=== PATIENT | male | born 1960 | race Caucasian/White ===

== ENCOUNTER 2017-06-08 12:59 | Outpatient (CLI) | payer OTHER, MEDICARE ==
[2017-06-08 14:00] LABS: Hemoglobin 15.2 g/dL (14.0-18.0); Mean Corpuscular HGB CONC 34.1 g/dL (32.0-36.0); Mean Corpuscular Hemoglobin 34.1 pg (27.0-31.0); Mean Platelet Volume 6.6 fL (7.4-10.4); Platelet Count 289 thou/uL (130-400); Red Blood Cell (RBC) Count 4.45 mill/uL (4.70-6.10); White Blood Cell (WBC) Count 7.4 thou/uL (4.8-10.8)
[2017-06-08 14:22] LABS: Anion Gap 13 mmol/L (10-20); BUN (Urea Nitrogen) 11 mg/dL (8.4-25.7); Calc. Creatinine Clearance 0 mL/min (70-130); Calcium 10.1 mg/dL (7.8-10.44); Carbon Dioxide 28 mmol/L (22-29); Chloride 99 mmol/L (98-107); Estimated GFR-MDRD 81; Glucose 80 mg/dL (70-105); Potassium 4.7 mmol/L (3.5-5.1); Sodium 135 mmol/L (136-145)
== END 2017-06-08 13:00 | disposition home or self-care (01) ==
LOC: LABBT 12:59
PROVIDERS: ATTEND Orthopaedic Surgery
DX: Z01.818 Encounter for other preprocedural examination (principal); M72.4 Pseudosarcomatous fibromatosis
CPT/HCPCS: 80048; 85027; 93005; 93010

== ENCOUNTER 2017-06-13 07:25 | Day surgery (SDC) | payer OTHER, MEDICARE ==
[2017-06-08 13:17] VITALS: BMI 19.8
--- NOTE | 2017-06-12 09:19 | HP ---
HISTORY OF PRESENT ILLNESS: The patient is a 56-year-old white male who has developed a recurrent pa inful mass on the plantar aspect of his left foot. He had previous excision in 04/2015, which was a fibroma of the plantar fascia. He initially improved, but over the past several months he has notice d increasing pain and recurrence of the mass. PAST MEDICAL HISTORY: The patient has history of hypertension and a previous stroke. PAST SURGICAL HISTORY: He has had previous cervical fusion. CURRENT MEDICATIONS: Include verapamil, aspirin, Symbicort. ALLERGIES: He has no known allergies. FAMILY HISTORY/SOCIAL HISTORY/REVIEW OF SYSTEMS: Otherwise unremarkable. PHYSICAL EXAMINATION: GENERAL: Reveals a healthy appearing male. HEENT: Unremarkable. NECK: Supple. CHEST: Clear. HEART: Regular rate and rhythm. ABDOMEN: Soft, nontender. RECTAL/GENITAL: Deferred. EXTREMITIES: Pertinent findings related to the left foot. There is a 2 x 4 cm tender nodularity lilly ng the instep and mid plantar fascia which is tender. It appears to be multilobular. There is no wa rmth or erythema. Neurovascular exam is intact. There are palpable distal pulses. LABORATORY AND X-RAY FINDINGS: Previous x-rays of the foot are normal. Previous Pathology report of the lesion revealed a fibroma. IMPRESSION: Nodular plantar fasciitis, left foot. PLAN: Surgical excision. The nature of the surgery, length of recovery, and potential complications such as infection, loss of motion, neurovascular injury, recurrence, and need for additional treatme nt or repeat surgery have been discussed in detail.
[2017-06-13] MEDS ORDERED: Clindamycin/D5W 900 mg/50 ml Premix Bag ONE (08:22)
[2017-06-13] MEDS ORDERED: Bupivacaine PF 0.5% 30 ML VIAL ONE (09:55)
[2017-06-13] MEDS ORDERED: Lidocaine 1% w/Epinephrine 1:200K 30 ML VIAL ONE (09:55)
[2017-06-13] MEDS ORDERED: Midazolam HCl 2 mg/2 ml Vial ONE (10:10)
[2017-06-13] MEDS ORDERED: Fentanyl 100 MCG/2 ML VIAL ONE (10:10)
--- NOTE | 2017-06-13 12:00 | OP ---
DATE OF PROCEDURE: 06/13/2017 SURGEON: Yonis Marie M.D. IMAGE EDITOR: Lena Rodriguez PA-C ANESTHESIA: General. PREOPERATIVE DIAGNOSIS: Recurrent nodular plantar fasciitis, left foot. POSTOPERATIVE DIAGNOSIS: Excision of nodular plantar fasciitis, left foot. OPERATIVE FINDINGS: There was extensive involvement of nodular plantar fasciitis of the plantar fasc ia extending from just distal to the insertion of the calcaneus to the base of the big toe MP joint. It is most thickened in the middle of this, but lesion measured approximately 7 x 3 cm. Excision wa s obtained. NARRATIVE REPORT: After satisfactory anesthesia was induced in supine position, the patient was prep ped and draped in the routine manner. Left leg was elevated, exsanguinated with an Esmarch bandage, and the tourniquet inflated to 200 mmHg. A longitudinal incision was made from the base of the great toe MP joint along the plantar fascia just distal to the calcaneal insertion of the plantar fascia. Using sharp and blunt dissection, full-thickness skin flaps were developed and the above findings we re noted. The plantar fascia was incised several centimeters distal to its plantar fascial insertion and then peeled off the underlying muscle and the remaining plantar fascia and the nodularity was ex cised in its entirety to the base of the great toe MP joint. This was sent to pathology. There appe ared to be complete excision of the mass. The wound was then thoroughly irrigated and subcutaneous t issue was injected with 30 mL of 0.5% plain Marcaine. Skin was then closed with interrupted 3-0 nylo n and a sterile bulky compressive dressing was applied and tourniquet deflated after 36 minutes. The foot promptly pinked up and the patient was placed into a postoperative shoe. Awakened and taken to recovery room in stable condition. There were no apparent intraoperative complications. The estima amalia blood loss was negligible. The patient will be discharged home in satisfactory condition. He was instructed in ice, elevation, and use of crutches, and partial weight bearing and given written wound care instructions. He was gi katie a prescription for Tylenol #3 for pain, 60 tablets with 1 refill. He will be rechecked in off ice in 2 weeks or sooner if there are any problems prior to that time.
[2017-06-13] MEDS ORDERED: Ondansetron HCl/PF 4 MG/2 ML Vial ONE (16:00)
[2017-06-13] MEDS ORDERED: PROPOFOL 200 MG/20 ML VIAL ONE (16:00)
[2017-06-13] MEDS ORDERED: Ketorolac Tromethamine 30 MG/ML VIAL ONE (16:00)
[2017-06-13] MEDS ORDERED: Lidocaine 1% PF 5 ML VIAL ONE (16:00)
== END 2017-06-13 12:45 | disposition home or self-care (01) ==
LOC: SDC 07:25
PROVIDERS: ATTEND Orthopaedic Surgery
PROC: 0JBR0ZZ Excision of Left Foot Subcutaneous Tissue and Fascia, Open Approach (ICD-10-PCS; principal; 2017-06-13)
DX: M72.4 Pseudosarcomatous fibromatosis (principal); I10 Essential (primary) hypertension; Z88.0 Allergy status to penicillin; Z98.1 Arthrodesis status; Z86.73 Personal history of transient ischemic attack (TIA), and cerebral infarction without residual deficits
CPT/HCPCS: 88305; G8978-GP-CM; G8979-GP-CM; G8980-GP-CM; J1885; J2001; J2250; J2405; J2704; J3010; J3490; S0020

== ENCOUNTER 2017-09-23 17:11 | Inpatient (IN) | payer OTHER, MEDICARE ==
[~2017-09-23 17:11] MED LIST: ISOVUE-370 76%-LOCM 1 ML ONE
[2017-09-23 18:48] LABS: #Basophils 0.1 thou/uL (0.0-0.2); #Eosinphils 0.6 thou/uL (0.0-0.7); #Lymphocytes 3.6 thou/uL (1.20-3.40); #Monocytes 0.8 thou/uL (0.11-0.59); #Neutrophils 3.9 thou/uL (1.40-6.50); %Basophils 1.3 % (0.0-1.0); %Eosinophils 6.7 % (0.0-10.0); %Lymphocytes 39.6 % (21.0-51.0); %Monocytes 9.2 % (0.0-10.0); %Neutrophils 43.1 % (42.0-75.0); Hemoglobin 15.9 g/dL (14.0-18.0); Mean Corpuscular HGB CONC 34.2 g/dL (32.0-36.0); Mean Corpuscular Hemoglobin 33.7 pg (27.0-31.0); Mean Corpuscular Volume 98.7 fl (80.0-94.0); Mean Platelet Volume 6.2 fL (7.4-10.4); Platelet Count 283 thou/uL (130-400); RBC Distribution Width 11.2 % (11.5-14.5); Red Blood Cell (RBC) Count 4.71 mill/uL (4.70-6.10); White Blood Cell (WBC) Count 9.1 thou/uL (4.8-10.8)
[2017-09-23 19:00] LABS: ALT (SGPT) 13 U/L (8-55); AST (SGOT) 17 U/L (5-34); Albumin 4.1 g/dL (3.5-5.0); Alkaline Phosphatase 51 U/L (40-150); Anion Gap 10 mmol/L (10-20); BUN (Urea Nitrogen) 7 mg/dL (8.4-25.7); Bilirubin, Total 0.4 mg/dL (0.2-1.2); CK (CPK) 42 U/L (30-200); Calc. Creatinine Clearance 0 mL/min (70-130); Calcium 9.7 mg/dL (7.8-10.44); Carbon Dioxide 30 mmol/L (22-29); Chloride 102 mmol/L (98-107); Estimated GFR-MDRD Greater than 90; Globulin 3.1 g/dL (2.4-3.5); Glucose 91 mg/dL (70-105); Lipase 27 U/L (8-78); Magnesium 2.4 mg/dL (1.6-2.6); Potassium 4.6 mmol/L (3.5-5.1); Protein, Total 7.2 g/dL (6.0-8.3); Sodium 137 mmol/L (136-145)
--- NOTE | 2017-09-23 19:04 | CT ---
CT BRAIN: History: Difficulty swallowing. Lip numbness which began two weeks ago. The patient presents to the [facility] for CT of the brain. Comparison: 11-18-16 FINDINGS: Noncontrast enhanced CT images of the brain demonstrate no evidence of intracranial masses, hemorrhag es, or strokes. Ventricles are of normal size. IMPRESSION: Normal CT brain. POS: K[facility]STIE
[2017-09-23 19:20] LABS: Bilirubin Negative (Negative); Blood, Urine Negative (Negative); Clarity CLEAR (Clear); Glucose, Urine (Dipstick) Negative (Negative); Leukocyte Negative (Negative); Nitrite Negative (Negative); Protein, Urine (Dipstick) Negative (Neg-Trace); Specific Gravity, Urine 1.005 (1.002-1.036)
--- NOTE | 2017-09-23 21:18 | CT ---
SOFT TISSUE NECK CT: History: Evaluate for esophageal mass. Swallowing difficulty. Numbness. Technique: Contrast enhanced CT of the soft tissue neck is performed. FINDINGS: The orbits are unremarkable. The ethmoid and sphenoid sinuses and maxillary sinuses are unremarkable. The nasopharynx is unremarkable. The hypopharynx is unremarkable. The vallecula and epiglottis are wi thin normal limits. The proximal esophagus demonstrates no significant evidence of abnormalities or m asses. No evidence of dilatation seen in the proximal portion of the esophagus. The superior mediasti num is unremarkable. The superior mediastinum is unremarkable. No evidence of significant lymphadenopathy is seen. Mild bilateral carotid bulb vascular calcifications seen. The patient has an ACDF plate and screws anterior to the C5-6 level. There is an approximately 5 mm area of soft tissue density seen in the posterior aspect of the right upper lobe seen on Image 90. This may represent a possible small right upper lobe mass. This lesion i s too small to characterize. The lesion is unchanged since the previous CT of the neck from 11-17-16. IMPRESSION: No significant evidence of soft tissue neck masses or lesions seen. POS: KRISTIE
[2017-09-23] MEDS ORDERED: Nicotine 21 MG PATCH TOP SCH (22:30)
[2017-09-23] MEDS ORDERED: Ondansetron HCl/PF 4 MG/2 ML Vial IVP PRN (22:32)
[2017-09-23] MEDS ORDERED: Acetaminophen 325 MG TAB PO PRN (22:32)
[2017-09-23] MEDS ORDERED: Ondansetron ODT 4 MG TAB SL PRN (22:32)
[2017-09-23 23:09] VITALS: BMI 17.0
[2017-09-23 23:24] LABS: Troponin I Less than 0.010 ng/mL (< 0.028)
[2017-09-24 02:40] LABS: Troponin I 0.014 ng/mL (< 0.028)
[2017-09-24] MEDS ORDERED: Iopamidol 370 76% 100 ML VIAL ONE (06:41)
[2017-09-24] MEDS ORDERED: Non-Formulary Item 1 EACH (Budesonide-Formoterol [Symbicort 160-4.5] 1 PUFF) INH PRN (08:39)
[2017-09-24] MEDS ORDERED: hydrALAZINE 20 MG/ML VIAL SLOW IVP PRN (08:40)
[2017-09-24] MEDS ORDERED: Labetalol HCl 100 MG/20 ML VIAL SLOW IVP PRN (08:40)
[2017-09-24] MEDS ORDERED: Bisacodyl 5 MG TAB PO PRN (08:40)
[2017-09-24] MEDS ORDERED: Morphine 4 MG/ML VIAL SLOW IVP PRN (08:44)
[2017-09-24] MEDS: HYDROcodone/Acetaminophen 10/325 mg Tablet PO PRN ×3 (09:10→20:29)
[2017-09-24] MEDS: Enoxaparin Sodium 40 MG/0.4 ML SYRINGE SC SCH (09:11)
[2017-09-24] MEDS: Gabapentin 300 MG CAP PO SCH ×3 (09:11→20:29)
[2017-09-24] MEDS: Nicotine 21 MG PATCH TD SCH (09:11)
[2017-09-24] MEDS: Aspirin 81 mg Enteric Coated Tablet PO SCH (09:11)
--- NOTE | 2017-09-24 09:32 | MRI ---
BRAIN MRI WITHOUT CONTRAST: HISTORY: CVA. Difficulty swallowing, times 3 days. COMPARISON: 11/19/16. TECHNIQUE: A brain MRI is performed without intravenous Gadolinium administration. Multisequential, multiplanar imaging is performed. FINDINGS: No hemorrhage on the axial gradient echo sequence. No parenchymal mass, mass effect, or midline shift. Brain volume is age-appropriate. Cortical conley- white matter differentiation is preserved. The ventricles and sulci are patent and symmetric. Central arterial flow voids are maintained. Abse nt restricted diffusion. Calvarium has a normal T1 marrow signal intensity. Midline brain parenchymal structures are unremark able. Mild paranasal sinus mucosal thickening. Partial opacification of the right mastoid air cells. No s ignificant T2 or FLAIR white matter hyperintensities on the axial sequence. IMPRESSION: 1. Absent restricted diffusion. No acute infarction. 2. Age-appropriate brain volume loss. POS: [facility]
--- NOTE | 2017-09-24 09:37 | MRI ---
MRI ANGIOGRAM OF THE HEAD: HISTORY: Inability to swallow x 3 days. COMPARISON: 06/16/09. TECHNIQUE: MRI angiogram of the [place] is performed in the axial plane. Three-D eyrs-ha-cezxyi imagin g is utilized. Maximum intensity projection images are submitted. FINDINGS: Symmetric flow-related signal in the distal cervical and intracranial internal carotid arteries. Anterior Circulation: Symmetric flow-related signal in the A1 and M1 segments. Proximal A2 segments and MCA branches are u nremarkable. Posterior Circulation: Visualized vertebral arteries have appropriate flow-related signal. The left PICA artery origin is u nremarkable. Inadequate visualization of the right PICA artery origin. Both vertebral arteries supp ly a normal-appearing basilar artery. Appropriate flow-related signal. No significant stenosis. Le ft and right P1 segment has symmetric flow-related signal. IMPRESSION: Unremarkable MRI angiogram of the [place] of [place]. POS: K[facility]
--- NOTE | 2017-09-24 14:58 | HP ---
DATE OF ADMISSION: 09/24/2017 PRIMARY CARE PROVIDER: Patricia Etienne M.D. CHIEF COMPLAINT: Difficulty swallowing. HISTORY OF PRESENT ILLNESS: Mr. Fernandez is a pleasant 57-year-old gentleman who was seen at [facility] on 09/24/2017. He reports that he has been having difficulty swallowing solids for the last 2 weeks. He also report s numbness of his lips. He is able to swallow liquids. He previously had a stroke in 2008 with left -sided weakness that improved and there were no residual deficits according to patient. He presented to the emergency room mainly because of difficulty swallowing, weight loss and perioral numbness and tingling. In the emergency room, there was concern that he may have left-sided deficits and stroke workup was started. He denies any fevers or chills. He denies any nausea, vomiting, diarrhea or abdominal pain. REVIEW OF SYSTEMS: All other systems reviewed and found to be negative. PAST MEDICAL HISTORY: Hypertension and stroke. PAST SURGICAL HISTORY: Cervical fusion, left foot mass excision. ALLERGIES: PENICILLIN. CURRENT MEDICATIONS: Aspirin 81 mg daily, Symbicort 160/4.5 one puff 2 times a day, gabapentin 300 m g 3 times a day, [place] p.r.n., verapamil 240 mg daily. FAMILY HISTORY: Significant for heart disease in his father. SOCIAL HISTORY: The patient drinks alcohol on a daily basis, more than 10 alcoholic drinks a day. H tiana smokes 2 packs of cigarettes a day. He denies recreational drug use. PHYSICAL EXAMINATION: GENERAL: Mr. Fernandez is awake and alert, not in acute distress. VITAL SIGNS: He is afebrile. Blood pressure is 141/100. Pulse is 85. He is breathing at rate of 1 6 and saturating 96% on room air. BMI is 17.1. EYES: No scleral icterus. No conjunctival pallor. ENT: Moist mucosal membranes. No oropharyngeal erythema or exudates. NECK: Supple, nontender, normal range of movement. Trachea is midline. RESPIRATORY: Accessory muscles of breathing are not active. Chest wall movements are symmetric bila terally. LUNGS: Clear to auscultation without wheeze, rhonchi or crepitations. CARDIOVASCULAR: S1, S2 are heard, regular. Peripheral pulses palpable. No carotid bruit, no perica rdial rub. ABDOMEN: Soft, nontender, bowel sounds heard, no hepatomegaly, no splenomegaly. NEUROLOGIC: Tongue deviation to the left, left trapezius weakness. Otherwise, cranial nerves II-XII intact. No other focal or motor sensory deficits. Deep tendon reflexes 2+. Plantars downgoing shyam aterally. Cerebellar exam unremarkable. MUSCULOSKELETAL: Power is 5/5 in all 4 extremities. SKIN: No rashes or subcutaneous nodules. LYMPHATIC: No cervical lymphadenopathy. PSYCHIATRIC: Normal mood, normal affect, the patient is oriented to person, place and time. DATABASE: Mr. Fernandez' labs and investigations were reviewed. He had noncontrast CT scan of the bra in, which did not show any acute abnormality. He also had soft tissue and neck CT scan, which did no t show any evidence of soft tissue neck masses or lesions. He has normal white count, normal hemoglo bin, normal platelet count, elevated carbon dioxide of 30, otherwise unremarkable comprehensive metab olic profile, normal troponin I, normal lipase and normal TSH. Urinalysis is negative. ASSESSMENT AND PLAN: Mr. Fernandez is a pleasant 57-year-old gentleman who was seen at [facility] on 09/24/2017. His problem list includes: 1. Dysphagia: The patient is presenting with dysphagia to solids. He will be admitted to the [facility] for further investigations. Gastroenterology service will be consulted. He will also be seen by Speech Therapy Service. We will await their recommendations. 2. Weight loss. The patient reports losing weight from 130 to 112 pounds, although he is unsure as to when he weighed 130 pounds. We will initiate further workup depending on GI Service recommendatio ns. We will also obtain CT scan of the chest, abdomen and pelvis to rule out any masses. 3. Severe protein calorie malnutrition. Consult dietitian for help with treatment of protein calori e malnutrition. 4. Hypertension: Monitor vital signs, titrate antihypertensives as needed. 5. History of cerebrovascular accident: Mr. Fernandez is presenting with neurologic deficits. It is unclear whether these are acute or chronic. Await MRI/MRA of brain. Await Neurology consult. Many thanks for allowing me to participate in your patient's care. Please feel free to contact me wi th any questions or concerns. LEVEL OF RISK: Moderate. LEVEL OF COMPLEXITY: Moderate.
--- NOTE | 2017-09-24 15:13 | RAD ---
MODIFIED BARIUM SWALLOW: HISTORY: Dysphagia, oropharyngeal phase. Feeding difficulties. EXPOSURE: 2.1 minutes. 0.656 uGy*^cm2. FINDINGS: In the presence of speech pathologist and the radiologist, the patient was administered thin liquid, thick liquid, pudding, and solid consistencies. There is penetration without aspiration with thin liquid consistencies. The patient had episodes of gagging with the solid consistencies. There appears to be decreased muscular activity in the cervica l esophagus at the level of fusion plate which is at the C5-6 level. Questionable spasm of the upper esophageal sphincter. Direct visualization is recommended. IMPRESSION: Findings as above. Feeding recommendations as detailed by the speech pathologist. Consider endoscop y to evaluate the upper esophageal sphincter. POS: KRISTIE
--- NOTE | 2017-09-24 17:45 | CON ---
DATE OF CONSULTATION: 09/24/2017 HISTORY OF PRESENT ILLNESS: The patient is a 57-year-old male who reports a 2-week history of difficulty swallowing. He reports he is not able to swallow any solids. He can swallow pureed c onsistencies very slowly and he can drink liquids fairly easily. He reports he has lost approximatel y 20 pounds since this started. He has reported some numbness around his mouth, but usually unsure i f it is related to these other symptoms. He has had a history of 2 strokes in the past which he said he fully recovered from except for some left-sided weakness. He denies any heartburn, any nausea or vomiting. He reports his stools have been fairly loose. He attributes that to his liquid diet. Th e patient had a soft tissue neck that was performed and was negative. Brain MRI showed no acute infa rction. Brain MRI showed unremarkable MRI of the brain. The patient has undergone a modified barium swallow, results of which are unknown. PAST SURGICAL HISTORY: Includes C4-C5 surgery, ankle surgery. MEDICATIONS: Hydrocodone 10/325 one p.o. q.6 hours p.r.n., Neurontin 300 mg p.o. t.i.d., Symbicort 1 puff b.i.d., aspirin 81 mg p.o. q. day, verapamil 240 mg p.o. q. day. ALLERGIES: PENICILLIN. SOCIAL HISTORY: Does smoke. Alcohol rarely. FAMILY HISTORY: Negative for GI or liver disease. REVIEW OF SYSTEMS: Constitutional: No fever or chills. Positive for weight loss. Eyes: No blurre d vision or double vision. ENT: No sore throat or earaches. Cardiovascular: No chest pain or palp itation. Pulmonary: No shortness of breath, cough or wheezing. Gastrointestinal: See above. : No hematuria or dysuria. Musculoskeletal: No joint pain or muscle weakness except for the right an kle which is chronic. LABORATORY DATA: Shows a normal CBC except for MCV of 98.7. Chemistries are essentially normal exce pt for CO2 of 30, BUN of 7. Urinalysis is negative. ASSESSMENT: 1. Dysphagia - the patient's accompanying weight loss and progression make malignancy or concern. 2. Weight loss. 3. History of cerebrovascular accident. RECOMMENDATIONS: EGD tomorrow.
--- NOTE | 2017-09-24 18:02 | CT ---
CT OF THE CHEST AND ABDOMEN AND PELVIS WITH IV CONTRAST: Date: 09/24/17 PROVIDED CLINICAL HISTORY: Dysphagia and abnormal weight loss. FINDINGS: The heart, pericardium, and great vessels demonstrate an unremarkable CT appearance with the exceptio n of mild vascular calcification. Prominent by number, but not pathologically enlarged, mediastinal a nd right hilar lymph nodes. The lungs are free of significant opacity. Minimal emphysematous change i s seen. No pleural fluid or pneumothorax apparent. The airway appears patent and of normal caliber. Subcentimeter circumscribed hypodensities are seen in the liver, too small to characterize, but stati stically reflecting benign lesions such as cysts or hemangiomata. The spleen, pancreas, kidneys, and adrenal glands demonstrate an unremarkable CT appearance. There is no bowel dilatation, inflammatory fat stranding, free fluid, or lymph node enlargement withi n the abdomen or pelvis. The osseous structures demonstrate no concerning osteoblastic or osteolytic lesions. IMPRESSION: No evidence for an acute process. Chronic findings as above. POS: [facility]
--- NOTE | 2017-09-24 19:14 | CON ---
DATE OF CONSULTATION: 09/24/2017 IMPRESSION: Dysphagia to solids of uncertain etiology. Neuromuscular etiology is possible, although it would be quite isolated in location such as myasthenia gravis. PLAN: 1. Acetylcholine receptor antibody, MuSK antibody. 2. ENT evaluation. 3. Mestinon trial. HISTORY OF PRESENT ILLNESS: Mr. Fernandez is a 57-year-old man with a past history of some neuropathic pain in his feet. Over the last 2 weeks, reportedly lost about 13 pounds due to difficulty swallowi ng solids. He feels like they go part way down his throat and then gag him and cause him to cough it up. He does fine with liquids. He does not report any change in his speech. He has not noticed an y weakness of any bulbar area muscles or extremities. He had an MRI and MRA of the brain which were both unremarkable. A CT scan of the soft tissues of the neck did not show any structural lesions. H e had a modified barium swallow which showed a bit of penetration with liquids and difficulty with mo vement of solids into the esophagus. He does not report any double vision, ptosis or muscle atrophy. PAST MEDICAL HISTORY: Neuropathic pain in the feet. ALLERGIES: PENICILLIN. MEDICATIONS: List was reviewed. SOCIAL HISTORY: Unremarkable. FAMILY HISTORY: Noncontributory. REVIEW OF SYSTEMS: Otherwise, negative. PHYSICAL EXAMINATION: VITAL SIGNS: Blood pressure 104/78, pulse 92, respirations 16, temperature 98.3. HEENT: Pupils are equal and reactive. Conjunctivae clear. No ptosis present. Oropharynx was clear . No tongue atrophy or fasciculations noted. NECK: Supple. No lymphadenopathy noted. EXTREMITIES: No cyanosis, clubbing or edema. NEUROLOGIC: He was alert and cooperative. His speech is fluent and clear. Cranial nerves II-XII ar e intact. Motor exam showed good strength in all extremities including neck flexion and extension. Sensation was intact to light touch. He has some hypersensitivity on the soles of his feet. No trem or or dysmetria was present. SUMMARY: A 57-year-old man with dysphagia to solids with reported appearance of weakness of the lowe r pharynx is possible this could represent myasthenia gravis. We can give him a trial of Mestinon an d see if the symptoms improve. Antibody test would also provide some additional information. Outpat ient ENT evaluation for endoscopy would seem appropriate as well.
[2017-09-24] MEDS: Mometasone/Formoterol 120 PUFF INHALER INH SCH (19:33)
[2017-09-24] MEDS: Pyridostigmine Bromide IR 60 MG TAB PO SCH (20:29)
[2017-09-25 05:41] LABS: #Basophils 0.1 thou/uL (0.0-0.2); #Eosinphils 0.5 thou/uL (0.0-0.7); #Lymphocytes 2.7 thou/uL (1.20-3.40); #Monocytes 0.8 thou/uL (0.11-0.59); %Basophils 1.3 % (0.0-1.0); %Eosinophils 5.8 % (0.0-10.0); %Lymphocytes 33.4 % (21.0-51.0); %Monocytes 9.9 % (0.0-10.0); %Neutrophils 49.7 % (42.0-75.0); Hemoglobin 14.3 g/dL (14.0-18.0); Mean Corpuscular HGB CONC 32.5 g/dL (32.0-36.0); Mean Corpuscular Hemoglobin 32.1 pg (27.0-31.0); Mean Corpuscular Volume 98.9 fl (80.0-94.0); Mean Platelet Volume 6.4 fL (7.4-10.4); Platelet Count 274 thou/uL (130-400); RBC Distribution Width 11.1 % (11.5-14.5); Red Blood Cell (RBC) Count 4.46 mill/uL (4.70-6.10); White Blood Cell (WBC) Count 8.1 thou/uL (4.8-10.8)
[2017-09-25 05:53] LABS: Anion Gap 10 mmol/L (10-20); BUN (Urea Nitrogen) 5 mg/dL (8.4-25.7); Calc. Creatinine Clearance 73 mL/min (70-130); Calcium 9.2 mg/dL (7.8-10.44); Carbon Dioxide 29 mmol/L (22-29); Cardiac Risk 2.6 (Less than 4.5); Chloride 104 mmol/L (98-107); Cholesterol 172 mg/dl (< 200 Desired); Estimated GFR-MDRD Greater than 90; Glucose 89 mg/dL (70-105); HDL Cholesterol 65 mg/dL (>60 Neg Risk); LDL Cholesterol, Calculated 91 mg/dL; Potassium 4.1 mmol/L (3.5-5.1); Sodium 139 mmol/L (136-145); Triglycerides 82 mg/dL (Less than 150)
[2017-09-25] MEDS: Mometasone/Formoterol 120 PUFF INHALER INH SCH ×2 (07:04→18:33)
[2017-09-25] MEDS ORDERED: PROPOFOL 200 MG/20 ML VIAL ONE (07:30)
[2017-09-25] MEDS ORDERED: Morphine 4 MG/ML VIAL ONE (11:36)
[2017-09-25] MEDS ORDERED: Ketamine 50 MG/ML VIAL ONE (13:01)
--- NOTE | 2017-09-25 13:50 | OP ---
DATE OF PROCEDURE: 09/25/2017 PROCEDURE: Esophagogastroduodenoscopy with biopsy. INDICATION FOR PROCEDURE: Dysphagia. DESCRIPTION OF PROCEDURE: After the risks and benefits of the procedure were explained to the patien t including risks of bleeding, infection, perforation, reaction to anesthesia and/or pain, informed c onsent was obtained. The patient was then taken to the endoscopy suite where deep sedation was admin istered via propofol and anesthesia support. After adequate sedation was achieved, the standard narda roscope was introduced into the mouth with intubation of the esophagus, stomach and the proximal smal l intestine with the findings listed below. The patient tolerated the procedure well with no immedia te perioperative complications. FINDINGS: ESOPHAGUS: Normal appearing mucosa was seen in the proximal, mid and distal esophagus. There was no evidence of erosions, ulcerations, stricture/stenosis or mass lesions. Both the diaphragmatic pinch and GE junction were both well seen at 40 cm past the incisors. STOMACH: Normal appearing mucosa was seen in the gastric cardia, fundus, body and incisura. Minimal ly increased mucosal erythema was seen in the gastric antrum without associated erosions or ulceratio ns. Random gastric biopsies were taken from this region for evaluation of H. pylori status. Otherwi se, there was no evidence of mass lesions or active/recent bleeding. DUODENUM: Multiple small (1-2 mm) clean based ulcerations were seen in the duodenal bulb with increa sed surrounding erythema, but did not display any high risk stigmata of active/recent bleeding. Ther e was minimal mucosal edema associated with these ulcerations. Otherwise, the second portion of the duodenum was normal. There was no evidence of mass lesions or active/recent bleeding seen during thi s portion of the exam. IMPRESSION: 1. Multiple small duodenal ulcerations seen in the duodenal bulb, measuring approximately 1-2 mm in size without high risk stigmata concerning for Helicobacter pylori versus NSAID use. 2. Minimally increased mucosal erythema in the gastric antrum concerning for Helicobacter pylori or NSAID use, status post biopsies. 3. No evidence of strictures/stenosis seen in the esophagus that would contribute to the patient's d ysphagia. RECOMMENDATIONS: 1. We would advance the patient's diet to full liquid diet given no evidence of stricture or stenosi s on upper endoscopy. 2. Given the findings of increased upper esophageal sphincter pressure noted on the modified barium swallow, we would consider esophageal manometry for further evaluation of the patient's dysphagia. 3. We would refrain from any NSAID use. We will continue to follow. Please call with any questions.
--- NOTE | 2017-09-25 14:27 | PDOC.PN ---
- Subjective Encounter Start Date: 09/25/17 Encounter Start Time: 07:00 Pt seen for followup re: dysphagia. Denies chest pain, shortness of breath, fevers or chills. No nausea or vomiting. - Objective MAR Reviewed: Yes Vital Signs & Weight: Vital Signs (12 hours) Temp Pulse Resp BP Pulse Ox 09/25/17 08:00 97.4 F L 73 16 97 09/25/17 04:00 97.4 F L 73 16 97/67 96 Weight Admit Weight 112 lb Weight 112 lb 4.8 oz I&O: 09/24/17 09/25/17 09/26/17 06:59 06:59 06:59 Intake Total 480 600 Balance 480 600 Result Diagrams: 09/25/17 05:12 09/25/17 05:12 EKG Reviewed by me: Yes (Tele: NSR) Phys Exam - Physical Examination malnourished HEENT: moist MMs, sclera anicteric, oral pharynx no lesions, 2+ tonsils Neck: no nodes, no JVD, supple, full ROM Respiratory: no wheezing, no rales, no rhonchi, clear to auscultation bilateral Cardiovascular: RRR, no rub S1, S2 Gastrointestinal: soft, non-tender, no distention, positive bowel sounds Neurological: moves all 4 limbs Psychiatric: normal affect, A&O x 3 Dx/Plan (1) Dysphagia Code(s): R13.10 - DYSPHAGIA, UNSPECIFIED Status: Acute Comment: await EGD. Concern re: myasthenia gravis, pt has been started on mestinon. (2) Weight loss Status: Acute Comment: etiology unclear. CT chest/abdo/pelvis unrevealing (3) H/O: CVA (cerebrovascular accident) Code(s): Z86.73 - PRSNL HX OF TIA (TIA), AND CEREB INFRC W/O RESID DEFICITS Status: Chronic Comment: stable (4) Severe protein-calorie malnutrition Code(s): E43 - UNSPECIFIED SEVERE PROTEIN-CALORIE MALNUTRITION Status: Chronic Comment: appreciate dietitian input (5) Hypertension Code(s): I10 - ESSENTIAL (PRIMARY) HYPERTENSION Status: Chronic Comment: Controlled - Plan * . Review of Systems - Review of Systems Constitutional: weakness, other (weight loss). negative: fever, chills, sweats , malaise Respiratory: negative: Cough, Dry, Shortness of Breath, Hemoptysis, SOB with Excertion, Pleuritic Pain, Sputum, Wheezing Cardiovascular: negative: chest pain, palpitations, orthopnea, paroxysmal nocturnal dyspnea, edema, light headedness Gastrointestinal: Other (difficulty swallowing). negative: Nausea, Vomiting, Abdominal Pain, Diarrhea, Constipation, Melena, Hematochezia Genitourinary: negative: Dysuria, Frequency, Incontinence, Hematuria, Retention Skin: negative: Rash, Lesions, Lance, Bruising - Medications/Allergies Allergies/Adverse Reactions: Allergies Allergy/AdvReac Type Severity Reaction Status Date / Time Penicillins Allergy SWELLING Verified 06/19/16 13:37 Medications: Current Medications Hydrocodone Bitart/Acetaminophen ([place] 10/325) 1 tab PO Q6H PRN PRN Reason: Moderate Pain (4-6) Last Admin: 09/24/17 20:29 Dose: 1 tab Aspirin (Ecotrin) 81 mg PO DAILY [facility] Last Admin: 09/24/17 09:11 Dose: 81 mg Bisacodyl (Dulcolax) 10 mg PO DAILYPRN PRN PRN Reason: Constipation Enoxaparin Sodium (Lovenox) 40 mg SC 0900 [facility] Last Admin: 09/24/17 09:11 Dose: 40 mg Gabapentin (Neurontin) 300 mg PO TID [facility] Last Admin: 09/24/17 20:29 Dose: 300 mg Hydralazine HCl (Apresoline) 10 mg SLOW IVP Q4H PRN PRN Reason: BP > 220/110 Labetalol HCl (Normodyne) 20 mg SLOW IVP Q1H PRN PRN Reason: BP > 220/110 Mometasone Furoate/Formoterol Fumar (Dulera 200 Mcg/5 Mcg Inhaler) 1 puff INH BID-RT [facility] Last Admin: 09/25/17 07:04 Dose: 1 puff Morphine Sulfate (Morphine) 2 mg SLOW IVP Q4H PRN PRN Reason: Pain Nicotine (Nicoderm Patch) 21 mg TD DAILY [facility] Last Admin: 09/24/17 09:11 Dose: Not Given Pyridostigmine [place] (Mestinon) 60 mg PO TID [facility] Last Admin: 09/24/17 20:29 Dose: 60 mg Sodium Chloride (Flush - Normal Saline) 10 ml IVF Q12HR [facility] Last Admin: 09/24/17 20:30 Dose: 10 ml Sodium Chloride (Flush - Normal Saline) 10 ml IVF PRN PRN PRN Reason: Saline Flush Verapamil HCl (Calan Sr) 240 mg PO QAM [facility] Last Admin: 09/24/17 09:11 Dose: 240 mg
[2017-09-25] MEDS: Aspirin 81 mg Enteric Coated Tablet PO SCH (14:39)
[2017-09-25] MEDS: Gabapentin 300 MG CAP PO SCH ×3 (14:39→21:27)
[2017-09-25] MEDS: Pyridostigmine Bromide IR 60 MG TAB PO SCH ×3 (14:41→21:27)
[2017-09-25] MEDS: Enoxaparin Sodium 40 MG/0.4 ML SYRINGE SC SCH (14:41)
[2017-09-25] MEDS: Nicotine 21 MG PATCH TD SCH ×2 (14:44→18:49)
[2017-09-25 15:06] LABS: Ref Lab Test Ordered MUSK
[2017-09-26 05:23] LABS: #Basophils 0.1 thou/uL (0.0-0.2); #Eosinphils 0.5 thou/uL (0.0-0.7); #Monocytes 0.8 thou/uL (0.11-0.59); #Neutrophils 3.5 thou/uL (1.40-6.50); %Basophils 1.3 % (0.0-1.0); %Eosinophils 6.4 % (0.0-10.0); %Lymphocytes 37.5 % (21.0-51.0); %Monocytes 10.2 % (0.0-10.0); %Neutrophils 44.6 % (42.0-75.0); Hemoglobin 15.2 g/dL (14.0-18.0); Mean Corpuscular HGB CONC 33.9 g/dL (32.0-36.0); Mean Corpuscular Hemoglobin 33.5 pg (27.0-31.0); Mean Corpuscular Volume 98.9 fl (80.0-94.0); Mean Platelet Volume 6.3 fL (7.4-10.4); Platelet Count 280 thou/uL (130-400); RBC Distribution Width 11.1 % (11.5-14.5); Red Blood Cell (RBC) Count 4.52 mill/uL (4.70-6.10); White Blood Cell (WBC) Count 7.9 thou/uL (4.8-10.8)
[2017-09-26 06:04] LABS: Anion Gap 11 mmol/L (10-20); BUN (Urea Nitrogen) 6 mg/dL (8.4-25.7); Calc. Creatinine Clearance 72 mL/min (70-130); Calcium 9.3 mg/dL (7.8-10.44); Carbon Dioxide 27 mmol/L (22-29); Chloride 104 mmol/L (98-107); Estimated GFR-MDRD Greater than 90; Glucose 88 mg/dL (70-105); Potassium 4.2 mmol/L (3.5-5.1); Sodium 138 mmol/L (136-145)
[2017-09-26] MEDS: Mometasone/Formoterol 120 PUFF INHALER INH SCH ×2 (07:41→18:27)
[2017-09-26] MEDS: Gabapentin 300 MG CAP PO SCH ×3 (09:47→21:24)
[2017-09-26] MEDS: Pyridostigmine Bromide IR 60 MG TAB PO SCH ×3 (09:47→21:24)
[2017-09-26] MEDS: Aspirin 81 mg Enteric Coated Tablet PO SCH (09:47)
[2017-09-26] MEDS: Enoxaparin Sodium 40 MG/0.4 ML SYRINGE SC SCH (09:48)
[2017-09-26] MEDS: Nicotine 21 MG PATCH TD SCH (09:48)
--- NOTE | 2017-09-26 12:51 | PDOC.PN ---
- Subjective Encounter Start Date: 09/26/17 Encounter Start Time: 07:00 Pt seen for followup re: dysphagia. Reports ongoing difficulty swallowing. Denies fevers or chills. - Objective MAR Reviewed: Yes Vital Signs & Weight: Vital Signs (12 hours) Temp Pulse Resp BP BP Pulse Ox 09/26/17 08:05 94 18 129/90 09/26/17 04:00 97.9 F 72 18 99/67 95 Weight Admit Weight 112 lb Weight 112 lb 4.8 oz I&O: 09/25/17 09/26/17 09/27/17 06:59 06:59 06:59 Intake Total 600 480 500 Balance 600 480 500 Result Diagrams: 09/27/17 04:31 09/27/17 04:31 EKG Reviewed by me: Yes (Tele: NSR) Phys Exam - Physical Examination malnourished HEENT: moist MMs, sclera anicteric, oral pharynx no lesions, 2+ tonsils Neck: no nodes, no JVD, supple, full ROM Respiratory: no wheezing, no rales, no rhonchi, clear to auscultation bilateral Cardiovascular: RRR, no rub S1, S2 Gastrointestinal: soft, non-tender, no distention, positive bowel sounds Neurological: moves all 4 limbs Psychiatric: normal affect, A&O x 3 Dx/Plan (1) Dysphagia Code(s): R13.10 - DYSPHAGIA, UNSPECIFIED Status: Acute Comment: Mild improvement with Mestinon (2) Weight loss Status: Acute Comment: likely due to poor oral intake. continue Ensure (3) H/O: CVA (cerebrovascular accident) Code(s): Z86.73 - PRSNL HX OF TIA (TIA), AND CEREB INFRC W/O RESID DEFICITS Status: Chronic Comment: stable (4) Severe protein-calorie malnutrition Code(s): E43 - UNSPECIFIED SEVERE PROTEIN-CALORIE MALNUTRITION Status: Chronic Comment: appreciate dietitian input (5) Hypertension Code(s): I10 - ESSENTIAL (PRIMARY) HYPERTENSION Status: Chronic Comment: Pt' s blood pressure was low last night. Continue to monitor vital signs, titrate antihypertensives as needed. - Plan * . Review of Systems - Review of Systems Constitutional: negative: fever, chills, sweats, weakness, malaise ENT: Other (Dysphagia) Respiratory: negative: Cough, Shortness of Breath, SOB with Excertion, Pleuritic Pain, Wheezing Cardiovascular: negative: chest pain, palpitations, orthopnea, paroxysmal nocturnal dyspnea, edema, light headedness, other Gastrointestinal: Other (dysphagia). negative: Nausea, Vomiting, Abdominal Pain , Diarrhea, Constipation, Melena, Hematochezia Genitourinary: negative: Dysuria, Frequency, Incontinence, Hematuria, Retention Skin: negative: Rash, Lesions, Lance, Bruising - Medications/Allergies Allergies/Adverse Reactions: Allergies Allergy/AdvReac Type Severity Reaction Status Date / Time Penicillins Allergy SWELLING Verified 06/19/16 13:37 Medications: Current Medications Hydrocodone Bitart/Acetaminophen ([place] 10/325) 1 tab PO Q6H PRN PRN Reason: Moderate Pain (4-6) Last Admin: 09/24/17 20:29 Dose: 1 tab Aspirin (Ecotrin) 81 mg PO DAILY [facility] Last Admin: 09/26/17 09:47 Dose: 81 mg Bisacodyl (Dulcolax) 10 mg PO DAILYPRN PRN PRN Reason: Constipation Enoxaparin Sodium (Lovenox) 40 mg SC 0900 [facility] Last Admin: 09/26/17 09:48 Dose: 40 mg Gabapentin (Neurontin) 300 mg PO TID [facility] Last Admin: 09/26/17 09:47 Dose: 300 mg Hydralazine HCl (Apresoline) 10 mg SLOW IVP Q4H PRN PRN Reason: BP > 220/110 Labetalol HCl (Normodyne) 20 mg SLOW IVP Q1H PRN PRN Reason: BP > 220/110 Mometasone Furoate/Formoterol Fumar (Dulera 200 Mcg/5 Mcg Inhaler) 1 puff INH BID-RT [facility] Last Admin: 09/26/17 07:41 Dose: 1 puff Morphine Sulfate (Morphine) 2 mg SLOW IVP Q4H PRN PRN Reason: Pain Nicotine (Nicoderm Patch) 21 mg TD DAILY [facility] Last Admin: 09/26/17 09:48 Dose: 21 mg Pyridostigmine [place] (Mestinon) 60 mg PO TID [facility] Last Admin: 09/26/17 09:47 Dose: 60 mg Sodium Chloride (Flush - Normal Saline) 10 ml IVF Q12HR [facility] Last Admin: 09/26/17 09:48 Dose: 10 ml Sodium Chloride (Flush - Normal Saline) 10 ml IVF PRN PRN PRN Reason: Saline Flush Verapamil HCl (Calan Sr) 240 mg PO [facility] Last Admin: 09/26/17 09:47 Dose: 240 mg
[2017-09-26] MEDS: HYDROcodone/Acetaminophen 10/325 mg Tablet PO PRN (16:00)
[2017-09-26 17:24] LABS: Bilirubin Negative (Negative); Blood, Urine Negative (Negative); Clarity CLEAR (Clear); Glucose, Urine (Dipstick) Negative (Negative); Leukocyte Negative (Negative); Nitrite Negative (Negative); Protein, Urine (Dipstick) Negative (Neg-Trace); Specific Gravity, Urine 1.005 (1.002-1.036); Urobilinogen 0.2 mg/dL (0.2-1.0); pH, Urine 7.5 (5.0-9.0)
--- NOTE | 2017-09-26 18:58 | PRG ---
DATE OF SERVICE: 09/26/2017 SUBJECTIVE: The patient is reporting his swallowing has not improved. He is able to tolerate liquid s and pureed substances. He is not able to eat anything solid. He is being treated for myasthenia g ravis and has not had any improvement yet. He was scoped yesterday by Dr. Balderrama, reported no abnorm alities. OBJECTIVE: VITAL SIGNS: Temperature 97.8, pulse 90, respiratory rate 16, blood pressure 121/69. CHEST: Clear. CARDIOVASCULAR: Regular rate and rhythm. ABDOMEN: Soft, nontender without organomegaly or masses. LABORATORY DATA: Shows an essentially normal CBC, normal basic metabolic panel. ASSESSMENT: 1. Oropharyngeal dysphagia - no esophageal abnormalities noted on upper endoscopy. 2. Small duodenal ulcers. RECOMMENDATIONS: 1. Continue treatment for neuromuscular disorders. 2. Continue Neurology input. 3. Continue Speech Pathology input.
[2017-09-27 04:51] LABS: #Basophils 0.1 thou/uL (0.0-0.2); #Eosinphils 0.4 thou/uL (0.0-0.7); #Lymphocytes 2.7 thou/uL (1.20-3.40); #Monocytes 0.9 thou/uL (0.11-0.59); #Neutrophils 4.5 thou/uL (1.40-6.50); %Basophils 1.2 % (0.0-1.0); %Eosinophils 5.1 % (0.0-10.0); %Lymphocytes 30.8 % (21.0-51.0); %Monocytes 10.7 % (0.0-10.0); %Neutrophils 52.2 % (42.0-75.0); Hemoglobin 14.7 g/dL (14.0-18.0); Mean Corpuscular HGB CONC 33.4 g/dL (32.0-36.0); Mean Corpuscular Hemoglobin 33.1 pg (27.0-31.0); Mean Corpuscular Volume 99.2 fl (80.0-94.0); Mean Platelet Volume 6.1 fL (7.4-10.4); Platelet Count 266 thou/uL (130-400); RBC Distribution Width 11.1 % (11.5-14.5); Red Blood Cell (RBC) Count 4.45 mill/uL (4.70-6.10); White Blood Cell (WBC) Count 8.6 thou/uL (4.8-10.8)
[2017-09-27 05:10] LABS: Anion Gap 8 mmol/L (10-20); BUN (Urea Nitrogen) 8 mg/dL (8.4-25.7); Calc. Creatinine Clearance 75 mL/min (70-130); Calcium 9.5 mg/dL (7.8-10.44); Carbon Dioxide 29 mmol/L (22-29); Chloride 105 mmol/L (98-107); Estimated GFR-MDRD Greater than 90; Glucose 95 mg/dL (70-105); Potassium 4.1 mmol/L (3.5-5.1); Sodium 138 mmol/L (136-145)
[2017-09-27] MEDS: HYDROcodone/Acetaminophen 10/325 mg Tablet PO PRN (05:50)
[2017-09-27] MEDS: Mometasone/Formoterol 120 PUFF INHALER INH SCH (06:15)
[2017-09-27] MEDS: Nicotine 21 MG PATCH TD SCH (08:44)
[2017-09-27] MEDS: Enoxaparin Sodium 40 MG/0.4 ML SYRINGE SC SCH (08:44)
[2017-09-27] MEDS: Gabapentin 300 MG CAP PO SCH ×2 (08:45→14:30)
[2017-09-27] MEDS: Pyridostigmine Bromide IR 60 MG TAB PO SCH ×2 (08:45→14:30)
[2017-09-27] MEDS: Aspirin 81 mg Enteric Coated Tablet PO SCH (08:45)
[2017-09-27 11:52] VITALS: TEMP 97.8
[2017-09-27 15:31] VITALS: BP 112/70
--- NOTE | 2017-09-27 16:27 | PDOC.PN ---
- Subjective Encounter Start Date: 09/27/17 Encounter Start Time: 10:00 Pt seen for followup re: dysphagia. Reports feeling slightly better. No nausea or vomiting. No fevers or chills. - Objective MAR Reviewed: Yes Vital Signs & Weight: Vital Signs (12 hours) Temp Pulse Resp BP BP Pulse Ox 09/27/17 15:30 97.8 F 83 16 112/70 97 09/27/17 14:28 82 100/71 09/27/17 11:51 97.8 F 87 16 89/68 L 96 09/27/17 07:49 98.2 F 86 16 106/79 97 09/27/17 07:27 97.8 F 83 16 95 Weight Admit Weight 112 lb Weight 112 lb 4.8 oz I&O: 09/26/17 09/27/17 09/28/17 06:59 06:59 06:59 Intake Total 480 500 240 Output Total 0 Balance 480 500 240 Result Diagrams: 09/27/17 04:31 09/27/17 04:31 EKG Reviewed by me: Yes (Tele: NSR) Phys Exam - Physical Examination Malnourished HEENT: moist MMs Neck: supple Respiratory: clear to auscultation bilateral Cardiovascular: RRR Gastrointestinal: soft Neurological: moves all 4 limbs Psychiatric: normal affect Dx/Plan (1) Dysphagia Code(s): R13.10 - DYSPHAGIA, UNSPECIFIED Status: Acute Comment: Mild improvement with Mestinon (2) Myasthenia gravis Code(s): G70.00 - MYASTHENIA GRAVIS WITHOUT (ACUTE) EXACERBATION Status: Acute Comment: continue Mestinon (3) Weight loss Status: Acute Comment: likely due to poor oral intake. continue Ensure (4) H/O: CVA (cerebrovascular accident) Code(s): Z86.73 - PRSNL HX OF TIA (TIA), AND CEREB INFRC W/O RESID DEFICITS Status: Chronic Comment: stable (5) Severe protein-calorie malnutrition Code(s): E43 - UNSPECIFIED SEVERE PROTEIN-CALORIE MALNUTRITION Status: Chronic Comment: appreciate dietitian input (6) Hypertension Code(s): I10 - ESSENTIAL (PRIMARY) HYPERTENSION Status: Chronic Comment: Pt' s blood pressure was low last night. Continue to monitor vital signs, titrate antihypertensives as needed. - Plan * . Review of Systems - Medications/Allergies Allergies/Adverse Reactions: Allergies Allergy/AdvReac Type Severity Reaction Status Date / Time Penicillins Allergy SWELLING Verified 06/19/16 13:37 Medications: Current Medications Hydrocodone Bitart/Acetaminophen ([place] 10/325) 1 tab PO Q6H PRN PRN Reason: Moderate Pain (4-6) Last Admin: 09/27/17 05:50 Dose: 1 tab Aspirin (Ecotrin) 81 mg PO DAILY [facility] Last Admin: 09/27/17 08:45 Dose: 81 mg Bisacodyl (Dulcolax) 10 mg PO DAILYPRN PRN PRN Reason: Constipation Enoxaparin Sodium (Lovenox) 40 mg SC 0900 [facility] Last Admin: 09/27/17 08:44 Dose: 40 mg Gabapentin (Neurontin) 300 mg PO TID [facility] Last Admin: 09/27/17 14:30 Dose: 300 mg Hydralazine HCl (Apresoline) 10 mg SLOW IVP Q4H PRN PRN Reason: BP > 220/110 Labetalol HCl (Normodyne) 20 mg SLOW IVP Q1H PRN PRN Reason: BP > 220/110 Mometasone Furoate/Formoterol Fumar (Dulera 200 Mcg/5 Mcg Inhaler) 1 puff INH BID-RT [facility] Last Admin: 09/27/17 06:15 Dose: 1 puff Morphine Sulfate (Morphine) 2 mg SLOW IVP Q4H PRN PRN Reason: Pain Nicotine (Nicoderm Patch) 21 mg TD DAILY [facility] Last Admin: 09/27/17 08:44 Dose: 21 mg Pyridostigmine [place] (Mestinon) 60 mg PO TID [facility] Last Admin: 09/27/17 14:30 Dose: 60 mg Sodium Chloride (Flush - Normal Saline) 10 ml IVF Q12HR [facility] Last Admin: 09/27/17 08:44 Dose: 10 ml Sodium Chloride (Flush - Normal Saline) 10 ml IVF PRN PRN PRN Reason: Saline Flush Verapamil HCl (Calan Sr) 240 mg PO QAM [facility] Last Admin: 09/27/17 08:45 Dose: 240 mg
--- NOTE | 2017-09-27 18:08 | PRG ---
DATE OF SERVICE: 09/27/2017 SUBJECTIVE: The patient is feeling a little better. He says he is swallowing better. Discussing th is with the speech pathologist, she felt that he was swallowing better. I discussed the case with Dr Bereket Carney as well. OBJECTIVE: VITAL SIGNS: Temperature 97.8, pulse 83, respiratory rate 16, blood pressure 112/70. HEENT: Unremarkable. NECK: Supple. CHEST: Clear. CARDIOVASCULAR: Regular rate and rhythm. ABDOMEN: Soft and nontender without organomegaly or masses. LABORATORY DATA: Shows a normal CBC, normal basic metabolic panel. ASSESSMENT: Oropharyngeal dysphagia. RECOMMENDATIONS: 1. Continue PPI. 2. Continue treatment for neuromuscular disorders. 3. Stable for discharge from gastrointestinal standpoint. 4. Follow up with Dr. Miles as an outpatient.
--- NOTE | 2017-09-28 01:01 | DIS ---
DATE OF ADMISSION: 09/24/2017 DATE OF DISCHARGE: 09/27/2017 PRIMARY CARE PHYSICIAN: Patricia Etienne MD DISCHARGE DIAGNOSES: 1. Dysphagia. 2. Myasthenia gravis. 3. Dysuria. CONDITION OF THE PATIENT ON THE DAY OF DISCHARGE: Stable. I assessed Mr. Fernandez on the day of disc harge. Please refer to my daily progress note for further information regarding this [id number] en counter. DISCHARGE MEDICATIONS: Aspirin 81 mg daily, budesonide/formoterol 160/4.5 mcg 1 puff 2 times a day, Neurontin 300 mg 3 times a day, [place] p.r.n., and Nicoderm 21 mg patch daily, pyridostigmine 60 mg 3 times a day, verapamil 240 mg daily, Protonix 40 mg daily. HOSPITAL COURSE: Mr. Fernandez is a pleasant 57-year-old gentleman who was admitted to [facility] on 09/24/2017 for dysphagia and suspected stroke. Please refer to my history and physical note from 09/24/2017 for further information. MR angiogram of the [place] was unre markable. MRI of the brain did not show any acute infarction. He had age-appropriate brain volume l oss. He was seen by Gastroenterology and Neurology services. He underwent EGD, which showed normal- appearing mucosa in the proximal, mid, and distal esophagus. There was no evidence of erosions, ulce rations, stricture/stenosis, or mass lesions. He had multiple small clean-based ulcerations in the d uodenal bulb with increased surrounding erythema. Gastroenterology service was planning to follow up with esophageal manometry to delineate the cause of patient's symptoms. Neurology service diagnosed him with probable myasthenia gravis and started him on Mestinon. The pat ient's swallow function improved. He also had dysuria. Urinalysis was negative. At the time of this dictation, he is being examined b y Urology service and will be discharged home to follow up with his primary care provider. On the da y of discharge, his white count was 8600, hemoglobin 14.7, platelet count 266,000. Normal sodium, no rmal potassium, and creatinine of 0.76. During this hospitalization, he had triglycerides of 82, cho lesterol 172, LDL cholesterol 91, and HDL cholesterol 65. TSH was normal at 3.39. Many thanks for allowing me to participate in your patient's care. Please feel free to contact me wi th any questions or concerns. DISCHARGE DESTINATION: Home. TOTAL AMOUNT OF TIME SPENT COORDINATING THIS DISCHARGE: 33 minutes.
--- NOTE | 2017-09-28 02:26 | CON ---
DATE OF CONSULTATION: 09/27/2017 DATE OF ADMISSION: 09/28/2017 DATE OF DISCHARGE: 09/28/2017 REASON FOR CONSULTATION: Dysuria. HISTORY OF PRESENT ILLNESS: Mr. Daniel Fernandez is a 57-year-old white male who is admitted with a ne w diagnosis of myasthenia gravis on this hospital admission. He does have a past history of a stroke affecting his left side. After starting on new medication, patient noted that he had dysuria sympto ms and having some pain with urination. He does not feel that he is having any difficulty in emptyin g his bladder. He has no outward signs of infection, no gross blood in the urine purulence or odor. Patient does not have any past history of urologic disorders and is on no medications. There is no family history of disorders. No history of renal cancer or prostate cancer. Patient's only complaint is that of pain with urination. REVIEW OF SYSTEMS: HEAD, EYES, EARS, NOSE, AND THROAT: No visual difficulties. Genitourinary: Anastasiya gregory does note that he is having difficulty swallowing. This was his primary admission complaint. P ulmonary: Negative. Cardiac: Negative. Musculoskeletal: No specific complaints. Gastrointestina l: Patient rarely has constipation difficulties. PAST MEDICAL HISTORY: 1. Hypertension. 2. Stroke. 3. New diagnosis of myasthenia gravis. PAST SURGICAL HISTORY: Patient had a previous cervical fusion also a left foot mass excision. ALLERGIES: PENICILLIN. OUTPATIENT MEDICATION LIST: Included, 1. Aspirin 81 mg p.o. day. 2. Symbicort 160/4.5 one puff twice daily. 3. Gabapentin 300 mg 3 times daily. 4. [place] taken on a p.r.n. basis. 5. Verapamil 240 mg p.o. daily. During this hospitalization, patient was treated with [place], Ecotrin, Dulcolax, Lovenox on 40 mg subc utaneous scheduled, gabapentin 300 mg t.i.d., hydralazine 10 mg slow drip, labetalol, morphine sulfat e 2 mg, Nicoderm patch. His new medication Mestinon 60 mg p.o. t.i.d. scheduled and verapamil 240 mg p.o. q.a.m. PHYSICAL EXAMINATION: VITAL SIGNS: Temperature is 97.8, pulse 83, respirations 16, O2 saturations 97% on room air, blood p ressure is 112/70. GENERAL: This is a pleasant, relatively cachectic white male in no apparent distress. HEAD, EYES, EARS, NOSE, THROAT: Extraocular movements are intact. Sclerae anicteric. Oropharynx is clear. Dentition is poor. NECK: Supple. LUNGS: Have ausculatory changes consistent with COPD. CARDIOVASCULAR: Regular rate and rhythm. ABDOMEN: Soft, flat, nontender. BACK: No costovertebral angle tenderness. No point tenderness along the course of the spine. GENITOURINARY: Phallus is circumcised and is without lesion. Palpation of inguinal canal finds no e vidence of hernia. Testes are benign and mildly atrophic. RECTAL: Digital rectal examination is performed and finds prostate gland, which measures centimeters approximately 30 grams, it is smooth, anodular, nontender. There are no sinister characteristics. No palpable masses in the rectum. NEUROLOGIC: Cranial nerves III-XI appeared to be grossly intact. Patient has ability to move all 4 extremities against gravity, is able to stand without any difficulty. Gait was not assessed. LABORATORY STUDIES AND X-RAY FINDINGS: Urinalysis was performed x2 on this hospitalization once on 0 09/23/2017 and again on 09/26/2017, urine gravity is relatively low at 1.005 on both tests. There is no evidence of blood, nitrite, or leukocyte esterase in the urinalysis. Serum chemistry showed patie nt's electrolytes within normal limits. Blood urea nitrogen relatively low at 8 with a creatinine of 0.76. A CT scan of the abdomen and pelvis was performed on 09/24/2017, this shows no renal masses or abnorm alities, no evidence of hydronephrosis, no stones. Does not demonstrate the presence of any signific ant bladder abnormalities. Patient's prostate gland appears to be in the size range is palpated abou t 30 grams. No specific genitourinary abnormalities are noted. ASSESSMENT AND PLAN: 1. Dysuria has a known potential side effect of use of Mestinon is likely related to that. 2. Patient has a substantial cigarette smoking history and is a current 2-pack per day cigarette smo ker. On occasion, bladder cancer presents with dysuria as a primary presentation without evidence of hematuria. Both of his urinalysis, urine gravity of 1.005, which can mass the presence of hematuria . Patient should undergo cystoscopic assessment due to his complaint, this can be performed in my of [facility] as an outpatient.
== END 2017-09-27 17:49 | disposition home or self-care (01) | DRG 56 ==
LOC: ERS 17:11 → 2SE 21:58
PROVIDERS: ADMIT Internal Medicine; ATTEND Internal Medicine
PROC: 0DB78ZX Excision of Stomach, Pylorus, Via Natural or Artificial Opening Endoscopic, Diagnostic (ICD-10-PCS; principal; 2017-09-25)
DX: I69.391 Dysphagia following cerebral infarction (principal); E43 Unspecified severe protein-calorie malnutrition; Z68.1 Body mass index [BMI] 19.9 or less, adult; R13.10 Dysphagia, unspecified; I10 Essential (primary) hypertension; R30.0 Dysuria; G70.00 Myasthenia gravis without (acute) exacerbation; F17.210 Nicotine dependence, cigarettes, uncomplicated; Z88.0 Allergy status to penicillin; K26.9 Duodenal ulcer, unspecified as acute or chronic, without hemorrhage or perforation; G62.9 Polyneuropathy, unspecified; Z79.82 Long term (current) use of aspirin
CPT/HCPCS: 36415; 70450; 70491; 70544; 70551; 71260; 74177; 74230; 80048; 80053; 80061; 81003; 82550; 83519; 83690; 83735; 84443; 84484; 85025; 87086; 88305; 88312; 88342; 93306; 94664; A4216; G8978-GP-CK; G8979-GP-CK; G8980-GP-CK; G8996-GN-CK; G8997-GN-CJ; J1650; J2270; J2704

== ENCOUNTER 2017-10-11 06:01 | Day surgery (SDC) | payer OTHER, MEDICARE ==
[2017-10-10 11:39] VITALS: BMI 18.2
[2017-10-11] MEDS ORDERED: Levofloxacin 500 mg/D5W 100 ml Premix Bag ONE (08:04)
[2017-10-11] MEDS ORDERED: Morphine 4 MG/ML VIAL ONE ×2 (08:46→09:49)
--- NOTE | 2017-10-11 09:37 | CT ---
CT CHEST NONCONTRAST CT ABDOMEN AND PELVIS NONCONTRAST: Date: 10/11/17 HISTORY: Abdominal pain. Recent gastrostomy feeding tube placement. COMPARISON: 09/24/17. FINDINGS: Lungs remain hyperinflated with emphysematous changes and calcified granulomata. Tiny noncalcified no dule at the right anterior upper lobe is stable. Each renal collecting system, ureter, and the urinary bladder are decompressed without stone evident. Lack of contrast limits evaluation for other abnormalities. Percutaneous feeding catheter is present with balloon in the stomach, pulling the anterior wall anteriorly. No free air or significant free fl uid. No evidence of bowel obstruction. IMPRESSION: Gastrostomy feeding catheter is in place without evidence of complication. Findings called to Dr. Miles at 0918 hours. CODE CR. POS: [facility]
[2017-10-11 10:15] LABS: CKMB 0.4 ng/mL (0-6.6); Troponin I Less than 0.010 ng/mL (< 0.028)
--- NOTE | 2017-10-11 11:15 | OP ---
DATE OF PROCEDURE: 10/11/2017 SURGEON: Long Miles M.D. PROCEDURE: EGD with dilatation of the esophagus and placement of a PEG tube. PREPROCEDURE DIAGNOSES: 1. History of mild Helicobacter pylori gastritis. We will treat now that we have a way to get him t o take his medicines. 2. Oropharyngeal dysphagia with atypical features. He seems to have more problems with large boluse s. He did have a modified barium swallow with a little bit of a pharyngeal dysmotility. They had a concern there was a stricture; however, EGD showed no stricture, no pharyngeal masses. He has been e valuated and empirically treated at this point in time for possible myasthenia, although his serologi c evaluation for that so far has been negative. When he was admitted to the hospital he had a previo usly normal CT scan of the neck, brain MRI and MRA, although he has had prior history of transient is chemic attacks. 3. Mechanically he has an ACDF plate at C5-C6 level. 4. CAT scan also noted a 5 mm soft tissue density in the posterior aspect of the right upper lobe, a pparently of the thyroid, this is unchanged despite his CAT scan from 11/17/2016. A CAT scan from at date suggested it is the thyroid that it is talking about. 5. There is no significant vascular disease on the CT of his neck 11/17/2016, negative MRI brain CT this recent admission. 6. CT scan of abdomen, pelvis and chest on 09/24/2017 showed no acute processes. POSTOPERATIVE DIAGNOSES: 1. Esophagogastroduodenoscopy showed normal esophagus. Dilation performed to 60 Chinese which is a 2 cm dilator with no resistance of the pharynx or in the lower esophageal sphincter. Second look show ed no effect. 2. PEG tube placed by Ponsky pull technique. ANESTHESIA: TIVA. Levaquin 5 mg IV was given preoperatively. PROCEDURE IN DETAIL: . PLAN: 1. The patient will go home today after dietary teaching and PEG tube teaching. His is an RN. He does not need to stay in the hospital overnight. 2. He will return to our office tomorrow for PEG tube check. 3. After that, we will see him back in the office about a month later. Will let him complete his ne urologic evaluation. If no findings are noted there, we can consider esophageal manometry. 4. I suspect that there are probably multiple components causing his dysphagia. One, he has had pre vious transient ischemic attacks and may have had a small stroke that was not picked up on his MRI; 2 ) he may have myasthenia, which is being further worked up; 3) he has got an ACDF plate in his throat ; 4) he has no teeth, which makes swallowing large boluses difficult, he cannot chew them. 5. We will treat the H. pylori. 4-drug regimen. Prescriptions given at the time of discharge.
[2017-10-11] MEDS ORDERED: PROPOFOL 200 MG/20 ML VIAL ONE (15:15)
== END 2017-10-11 11:10 | disposition home or self-care (01) ==
LOC: SDC 06:01
PROVIDERS: ATTEND Internal Medicine Gastroenterology
PROC: 0DH63UZ Insertion of Feeding Device into Stomach, Percutaneous Approach (ICD-10-PCS; principal; 2017-10-11)
PROC: 0D758ZZ Dilation of Esophagus, Via Natural or Artificial Opening Endoscopic (ICD-10-PCS; principal; 2017-10-11)
DX: R13.12 Dysphagia, oropharyngeal phase (principal); F17.210 Nicotine dependence, cigarettes, uncomplicated; E78.5 Hyperlipidemia, unspecified; I10 Essential (primary) hypertension; J44.9 Chronic obstructive pulmonary disease, unspecified; Z86.73 Personal history of transient ischemic attack (TIA), and cerebral infarction without residual deficits; Z79.52 Long term (current) use of systemic steroids; Z79.82 Long term (current) use of aspirin; Z79.899 Other long term (current) drug therapy; Z88.0 Allergy status to penicillin; Z98.1 Arthrodesis status
CPT/HCPCS: 36415; 71250; 74177; 82553; 84484; 93005; 93010; J1956; J2270; J2704

== ENCOUNTER 2017-10-16 14:57 | Emergency (ER) | payer OTHER, MEDICARE ==
[2017-10-16] MEDS ORDERED: Lidocaine Viscous Sol 2% 15 ml UD Cup ONE (15:23)
[2017-10-16] MEDS ORDERED: Mag-Al 1200 mg/1200 mg/30 ML UDCUP ONE (15:23)
[2017-10-16 15:46] LABS: #Lymphocytes 1.6 thou/uL (1.20-3.40); #Monocytes 0.6 thou/uL (0.11-0.59); #Neutrophils 6.1 thou/uL (1.40-6.50); %Basophils 0.4 % (0.0-1.0); %Eosinophils 0.1 % (0.0-10.0); %Lymphocytes 19.5 % (21.0-51.0); %Monocytes 7.1 % (0.0-10.0); %Neutrophils 72.8 % (42.0-75.0); Hemoglobin 14.6 g/dL (14.0-18.0); Mean Corpuscular HGB CONC 34.6 g/dL (32.0-36.0); Mean Corpuscular Hemoglobin 33.4 pg (27.0-31.0); Mean Corpuscular Volume 96.5 fl (80.0-94.0); Platelet Count 296 thou/uL (130-400); RBC Distribution Width 11.3 % (11.5-14.5); Red Blood Cell (RBC) Count 4.37 mill/uL (4.70-6.10); White Blood Cell (WBC) Count 8.4 thou/uL (4.8-10.8)
--- NOTE | 2017-10-16 15:56 | RAD ---
PORTABLE CHEST ONE VIEW: Date: 10-16-17 Time: 3:41 p.m. History: Cough. FINDINGS: Comparison is made with exam of 09-26-12. The heart size is normal. The lungs are well expanded without lobar consolidation, pneumothoraces, or pleural effusions. IMPRESSION: No acute process. POS: H
[2017-10-16 16:09] LABS: ALT (SGPT) 9 U/L (8-55); AST (SGOT) 15 U/L (5-34); Albumin 3.7 g/dL (3.5-5.0); Alkaline Phosphatase 44 U/L (40-150); Anion Gap 13 mmol/L (10-20); BUN (Urea Nitrogen) 7 mg/dL (8.4-25.7); Bilirubin, Total 0.4 mg/dL (0.2-1.2); Calc. Creatinine Clearance 0 mL/min (70-130); Calcium 9.4 mg/dL (7.8-10.44); Carbon Dioxide 25 mmol/L (22-29); Chloride 101 mmol/L (98-107); Estimated GFR-MDRD Greater than 90; Globulin 2.9 g/dL (2.4-3.5); Glucose 149 mg/dL (70-105); Lipase Less than 4 U/L (8-78); Potassium 4.1 mmol/L (3.5-5.1); Protein, Total 6.6 g/dL (6.0-8.3); Sodium 135 mmol/L (136-145)
[2017-10-16 16:13] LABS: CKMB 0.3 ng/mL (0-6.6); Troponin I Less than 0.010 ng/mL (< 0.028)
--- NOTE | 2017-10-16 23:57 | CON ---
DATE OF CONSULTATION: 10/16/2017 CHIEF COMPLAINT: Abdominal pain. HISTORY OF PRESENT ILLNESS: Mr. Fernandez is a 57-year-old man who underwent PEG tube placement on 11/[address] Miles. He has had persistent pain at the insertion site since then. He gets burning discomfort when he receives feeds and he has not been able to tolerate his feeds well at all for the last few days. He came to the emergency room today and he was given a GI cocktail with immediate re solution of his pain. He still has tenderness around the abdominal wall with palpation when he moves or breathes; however, this is just at the insertion site. The rest of his abdomen does not bother h im. When he sleeps at night, he feels some pulling a little further inside. OBJECTIVE: His white blood cell count is normal. His abdomen is soft and tender around the PEG site immediately , but otherwise no peritoneal signs. His bowel sounds are active, the skin around the PEG site appea rs normal and clear. The ER physician is evaluated and is planning on discharging per the patient's request since he is feeling so much better. On my exam again, the site is clear. He only has some l ocal tenderness around the PEG site. I did loosen the gastrostomy bumper from 2.5 cm to between the 3 and 3.5 cm rachel, dressed with 4 x 4s and tape. IMPRESSION: Pain at the gastrostomy site improved with GI cocktail. He is on medication for Helicob acter pylori currently. He is on a proton pump inhibitor. His pain appears to be primarily muscle w all, pain around the insertion site. There are no peritoneal signs or signs of significant complicat ion. RECOMMENDATIONS: He will discharge home today. The PEG bumper was loosened. He will continue johnie n pump inhibitor and meds for the H. pylori. He will follow up in GI Clinic as needed.
== END 2017-10-16 17:19 | disposition home or self-care (01) ==
LOC: ERS 14:57
DX: K25.9 Gastric ulcer, unspecified as acute or chronic, without hemorrhage or perforation (principal); E78.5 Hyperlipidemia, unspecified; G43.909 Migraine, unspecified, not intractable, without status migrainosus; I10 Essential (primary) hypertension; F17.210 Nicotine dependence, cigarettes, uncomplicated; Z86.73 Personal history of transient ischemic attack (TIA), and cerebral infarction without residual deficits
CPT/HCPCS: 36415; 71045; 80053; 82553; 83690; 84484; 85025

== ENCOUNTER 2018-09-21 21:51 | Observation (INO) | payer OTHER, MEDICARE ==
[2018-09-21 22:47] LABS: Troponin I Less than 0.010 ng/mL (< 0.028)
[2018-09-21] MEDS ORDERED: Morphine 4 MG/ML VIAL ONE (22:54)
[2018-09-21] MEDS ORDERED: Aspirin Chewable 81 MG TAB ONE (22:54)
[2018-09-21] MEDS ORDERED: Lorazepam 1 MG TAB PO PRN (23:16)
[2018-09-21] MEDS ORDERED: Calcium Carbonate 500 MG ChewTAB PO PRN (23:16)
[2018-09-21] MEDS ORDERED: Mag-Al 1200 mg/1200 mg/30 ML UDCUP PO PRN (23:16)
[2018-09-21] MEDS ORDERED: Nitroglycerin 0.4 MG TAB (25 Tab Bottle) PO PRN (23:17)
[2018-09-21] MEDS ORDERED: Ondansetron ODT 4 MG TAB PO PRN (23:17)
[2018-09-21] MEDS ORDERED: Ondansetron PF 4 MG/2 ML Vial IVP PRN (23:17)
[2018-09-21] MEDS ORDERED: Acetaminophen 325 MG TAB PO PRN (23:17)
[2018-09-21] MEDS ORDERED: traMADol HCl 50 MG TAB PO PRN (23:19)
[2018-09-21] MEDS ORDERED: Nitroglycerin 2% Ointment 1 INCH/1 GM Packet TOP SCH (23:30)
--- NOTE | 2018-09-22 00:09 | HP ---
PRIMARY CARE PHYSICIAN: Patricia Etienne MD CHIEF COMPLAINT: Chest discomfort. HISTORY OF PRESENT ILLNESS: The patient is a 58-year-old male with ongoing tobacco abuse, hypertension, and myasthenia gravis, who presented to the emergency room with chest discomfort. He initially presented to [facility] and was transferred to this facility. The chest discomfort started this morning. It was over the right side of the sternum. It was initially intermittent, however, throughout the day, it became more constant. He had mild shortness of breath and lightheadedness without any nausea, vomiting, radiation, or diaphoresis. His pain was [id number] in intensity. He denies recent immobilization or travel. No worsening of the pain with deep breathing. The pain was not reproducible. He denies any heartburn, cough, or wheezing. In the emergency room, initial vital signs showed temperature 98.1, respirations 20, pulse of 96, blood pressure of 144/108 with O2 saturation 99% on room air. He takes 81 aspirin on a daily basis. He received 1 inch nitroglycerin patch along with labetalol in the emergency room. After nitroglycerin patch, his pain significantly improved. He was transferred to this facility. PAST MEDICAL HISTORY: 1. Hypertension. 2. Family history of heart disease. 3. Hyperlipidemia. 4. History of CVA. 5. Myasthenia gravis. 6. Ongoing tobacco abuse with [id number] smoking history. 7. COPD. 8. Swallow dysfunction. PAST SURGICAL HISTORY: 1. PEG tube placement in October 2017 with subsequent removal in December 2017. 2. Cervical fusion. 3. Left foot mass removal. ALLERGIES: THE PATIENT IS ALLERGIC TO PENICILLIN. CURRENT HOME MEDICATIONS: 1. Aspirin 81 mg daily. 2. Symbicort 160/4.5 two puffs daily. 3. daily for myasthenia gravis. 4. Tramadol as needed. 5. Verapamil ER 240 mg daily. 6. Mestinon 60 mg 3 times daily. FAMILY HISTORY: Positive for heart disease. SOCIAL HISTORY: The patient smokes 2 packs a day. Drinks alcohol almost on a daily basis. Denies any drug abuse. REVIEW OF SYSTEMS: All other review of systems was reviewed and were found negative. PHYSICAL EXAMINATION: VITAL SIGNS: As discussed above. His current vital signs showed temperature 97.6, respirations 16, pulse of 86, blood pressure of 169/98 with O2 saturation 97% on room air. GENERAL: A 58-year-old male, in no apparent distress. Current pain level is 5/10. HEENT: Head, atraumatic and normocephalic. Sclerae are anicteric. Moist mucous membranes. No oral lesion. NECK: Supple. No JVD appreciated. No carotid bruit. LUNGS: Clear to auscultation bilaterally. Symmetrical. No wheezing, rales, or rhonchi. HEART: S1 and S2 present. Regular rate and rhythm. No significant murmur, rubs, or gallops appreciated. No pulsations. No reproducible chest wall tenderness. ABDOMEN: Soft and nontender. Bowel sounds are present. EXTREMITIES: No edema or calf tenderness. NEUROLOGIC: Grossly nonfocal. Moves all 4 extremities. PSYCHIATRY: Alert, awake, and oriented x3. SKIN: Warm and dry. LYMPH NODES: No palpable lymph nodes in the neck. PERIPHERAL VASCULAR: Radial pulses are palpable bilaterally. MUSCULOSKELETAL: No joint swelling tenderness. LABORATORY FINDINGS: WBC 9.1 with hemoglobin 13.9, hematocrit 43.1, and platelet 314. Chemistry showed sodium 140, potassium 4.1, chloride 103, bicarbonate 27, BUN 15, and creatinine 0.86. LFTs in normal range. Troponin x2 have been negative. BNP 30.5. DIAGNOSTIC DATA: CT angiogram of the chest in the emergency room was negative for pulmonary embolism. There were chronic parenchymal changes. Chest x-ray by my review was negative for infiltrate. EKG by my review showed sinus rhythm without significant ST-T wave changes. IMPRESSION: 1. Chest discomfort in a 58-year-old male with multiple cardiac risk factors. His HeartScore is 4. His EKG is within normal limits. Troponin has been negative. His pain improved with nitroglycerin patch. His current pain level is 5/10. His symptoms are probably suspicious for coronary artery disease. 2. Ongoing tobacco abuse. The patient smokes up to 2 pack a day and has [id number] smoking history. 3. Chronic alcoholism. 4. Mild chronic anemia. 5. Myasthenia gravis, on Mestinon and . 6. History of cerebrovascular accident without significant residual deficit. 7. Chronic obstructive pulmonary disease. 8. History of swallowing difficulty, requiring PEG tube with subsequent removal. 9. Degenerative joint disease. 10. Hypertension. 11. Chronic pain syndrome. PLAN: The patient will be monitored in the telemetry unit as observation. Serial troponin x2 have been negative. We will repeat one more set of troponin. We will hold off on a stress test due to pain level of 5. We will reassess in a.m. We will repeat an EKG in a.m. We will consider Cardiology evaluation if the pain is persistent. We will keep him n.p.o. past midnight. We will resume his home medications. We will add PPIs due to chronic prednisone use. We will also add thiamine, folic acid, and multivitamin. We will start insulin sliding scale. Tobacco cessation was emphasized. Continue aspirin. We will add p.r.n. nebulizer treatment. Job ID: [id number]
[2018-09-22] MEDS ORDERED: Nicotine 21 MG PATCH TOP SCH (00:15)
[2018-09-22 01:23] VITALS: BMI 18.0
[2018-09-22 01:55] LABS: Troponin I Less than 0.010 ng/mL (< 0.028)
[2018-09-22] MEDS ORDERED: Ketorolac Tromethamine 30 MG/ML VIAL IVP SCH (03:00)
[2018-09-22] MEDS ORDERED: Cyclobenzaprine 10 MG TAB PO PRN (04:36)
[2018-09-22] MEDS ORDERED: Sodium Chloride 0.9% 1,000 ML IV SCH (04:45)
[2018-09-22 05:32] LABS: Troponin I Less than 0.010 ng/mL (< 0.028)
[2018-09-22] MEDS: Nitroglycerin 2% Ointment 1 INCH/1 GM Packet TOP SCH ×2 (06:21→14:38)
[2018-09-22] MEDS ORDERED: Mometasone/Formoterol 120 PUFF INHALER INH SCH (07:00)
[2018-09-22] MEDS: Pyridostigmine Bromide IR 60 MG TAB PO SCH ×2 (08:37→14:54)
[2018-09-22] MEDS ORDERED: Multivit, Therapeutic 1 TAB PO SCH (09:00)
[2018-09-22] MEDS ORDERED: Verapamil SR 120 MG TAB PO SCH (09:00)
[2018-09-22] MEDS ORDERED: Aspirin 325 mg Enteric Coated Tablet PO SCH (09:00)
[2018-09-22] MEDS ORDERED: Folic Acid 1 MG TAB PO SCH (09:00)
[2018-09-22] MEDS ORDERED: Enoxaparin Sodium 30 MG/0.3 ML SYRINGE SC SCH (09:00)
[2018-09-22] MEDS ORDERED: Thiamine 100 MG TAB PO SCH (09:00)
[2018-09-22] MEDS ORDERED: predniSONE 20 MG TAB PO SCH (09:00)
[2018-09-22] MEDS ORDERED: Regadenoson 0.4 MG/5 ML SYRINGE ONE (09:58)
--- NOTE | 2018-09-22 13:22 | NM ---
EXAM: Myocardial perfusion scan: 10 mCi of technetium labeled sestamibi administered for rest imaging. 30 mCi administered for stress imaging. Patient stressed according to Lexiscan protocol. INDICATIONS: Chest pain COMPARISON: None. FINDINGS: Normal activity throughout left ventricle on stress and rest imaging. No evidence of revers ible ischemia. Wall motion shows mild global hypokinesis. Ejection fraction recorded at 44%. IMPRESSION: No evidence of reversible ischemia. Decreased ejection fraction.
[2018-09-22 15:57] VITALS: BP 139/78; TEMP 98
== END 2018-09-22 16:14 | disposition home or self-care (01) ==
LOC: ERS 21:51 → 2SW 09-22 00:35
PROVIDERS: ADMIT Internal Medicine; ATTEND Internal Medicine
DX: R07.89 Other chest pain (principal); F17.210 Nicotine dependence, cigarettes, uncomplicated; F10.20 Alcohol dependence, uncomplicated; D64.9 Anemia, unspecified; G70.00 Myasthenia gravis without (acute) exacerbation; J44.9 Chronic obstructive pulmonary disease, unspecified; M19.90 Unspecified osteoarthritis, unspecified site; I10 Essential (primary) hypertension; G89.4 Chronic pain syndrome; Z86.73 Personal history of transient ischemic attack (TIA), and cerebral infarction without residual deficits; Z79.52 Long term (current) use of systemic steroids; Z79.82 Long term (current) use of aspirin; Z79.899 Other long term (current) drug therapy; Z88.0 Allergy status to penicillin; Z98.1 Arthrodesis status
CPT/HCPCS: 36415; 78452; 84484; 93005; 93017; 94760; 96361; 96372; 96374; 96375; 99406; A9500; G0378; J1650; J1885; J2270; J2785; J7512

== ENCOUNTER 2021-03-14 08:39 | Outpatient (CLI) | payer OTHER, MEDICARE ==
[2021-03-14 11:04] LABS: Hemoglobin 14.6 g/dL (13.5-17.5); Mean Corpuscular HGB CONC 33.7 g/dL (32.0-36.0); Mean Corpuscular Hemoglobin 32.4 pg (27.0-33.0); Mean Platelet Volume 9.2 fl (7.4-10.4); Platelet Count 279 10x3/uL (150-450); RBC Distribution Width 11.9 % (11.5-14.5); Red Blood Cell (RBC) Count 4.51 10x6/uL (4.32-5.72); White Blood Cell (WBC) Count 5.3 10x3/uL (3.5-10.5)
[2021-03-14 11:14] LABS: Anion Gap 14 mmol/L (10-20); BUN (Urea Nitrogen) 8 mg/dL (8.4-25.7); Calc. Creatinine Clearance 0 mL/min (70-130); Calcium 9.2 mg/dL (7.8-10.44); Carbon Dioxide 26 mmol/L (23-31); Chloride 100 mmol/L (98-107); Glucose 160 mg/dL (80-115); Sodium 135 mmol/L (136-145)
[2021-03-14 11:52] LABS: MDiff Complete? YES
[2021-03-14 11:55] LABS: Eosinophils 4 % (0-10); Monocytes 17 % (0-10)
[2021-03-14 11:56] LABS: Lymphocytes 39 % (21-51); Neutrophil 38 % (42-75)
[2021-03-14 11:57] LABS: Platelet Morphology Comment Appears Adequate; RBC Morphology Normal
[2021-03-14 20:26] LABS: SARS-CoV-2 PCR by NAA Not Detected (NotDetected)
== END 2021-03-14 08:40 | disposition home or self-care (01) ==
LOC: LABBT 08:39
PROVIDERS: ATTEND Orthopaedic Surgery
DX: Z01.818 Encounter for other preprocedural examination (principal); M77.12 Lateral epicondylitis, left elbow; Z20.822 Contact with and (suspected) exposure to COVID-19
CPT/HCPCS: 80048; 85025; 93005; 93010; U0003; U0005

== ENCOUNTER 2021-03-17 06:57 | Day surgery (SDC) | payer OTHER, MEDICARE ==
[2021-03-15 15:09] VITALS: BMI 19.8
[2021-03-17] MEDS ORDERED: Clindamycin/D5W 600 mg/50 ml Premix Bag ONE (08:24)
[2021-03-17] MEDS ORDERED: Fentanyl 100 MCG/2 ML VIAL ONE ×2 (08:37→09:21)
[2021-03-17] MEDS ORDERED: Midazolam HCl 2 mg/2 ml Vial ONE (08:37)
[2021-03-17] MEDS ORDERED: Propofol 500 MG/50 ML VIAL ONE ×2 (09:18→09:25)
[2021-03-17] MEDS ORDERED: Ondansetron PF 4 MG/2 ML Vial ONE (09:46)
[2021-03-17] MEDS ORDERED: Bupivacaine HCl 0.5%/Epinephrine 1:200,000/PF 30 ml Vial ONE (09:46)
== END 2021-03-17 11:00 | disposition home or self-care (01) ==
LOC: SDC 06:57
PROVIDERS: ATTEND Orthopaedic Surgery
PROC: 0LN40ZZ Release Left Upper Arm Tendon, Open Approach (ICD-10-PCS; principal; 2021-03-17)
PROC: 0PBG0ZZ Excision of Left Humeral Shaft, Open Approach (ICD-10-PCS; principal; 2021-03-17)
PROC: 3E0T3BZ Introduction of Anesthetic Agent into Peripheral Nerves and Plexi, Percutaneous Approach (ICD-10-PCS; principal; 2021-03-17)
DX: M77.12 Lateral epicondylitis, left elbow (principal); M25.722 Osteophyte, left elbow; F17.210 Nicotine dependence, cigarettes, uncomplicated; G70.00 Myasthenia gravis without (acute) exacerbation; I10 Essential (primary) hypertension; E78.5 Hyperlipidemia, unspecified; J44.9 Chronic obstructive pulmonary disease, unspecified; Z86.73 Personal history of transient ischemic attack (TIA), and cerebral infarction without residual deficits; Z79.52 Long term (current) use of systemic steroids; Z79.899 Other long term (current) drug therapy; Z88.0 Allergy status to penicillin; Z98.1 Arthrodesis status
CPT/HCPCS: J2250; J2405; J2704; J3010; J3490

== ENCOUNTER 2021-12-08 07:01 | Outpatient (CLI) | payer BC, MEDICARE | END 2021-12-08 07:02 | disposition home or self-care (01) | LOC: LABBT 07:01 | PROVIDERS: ATTEND Internal Medicine Gastroenterology | DX: R13.10 Dysphagia, unspecified (principal); Z20.822 Contact with and (suspected) exposure to COVID-19 | CPT/HCPCS: 87811 ==

== ENCOUNTER 2021-12-13 05:49 | Day surgery (SDC) | payer BC, MEDICARE ==
[2021-12-08 15:37] VITALS: BMI 19.0
[2021-12-13] MEDS ORDERED: PROPOFOL 200 MG/20 ML VIAL ONE (08:19)
[2021-12-13] MEDS ORDERED: Lidocaine 1% PF 5 ML VIAL ONE (08:19)
== END 2021-12-13 09:15 | disposition home or self-care (01) ==
LOC: SDC 05:49
PROVIDERS: ATTEND Internal Medicine Gastroenterology
PROC: 0D757ZZ Dilation of Esophagus, Via Natural or Artificial Opening (ICD-10-PCS; principal; 2021-12-13)
PROC: 0DJ08ZZ Inspection of Upper Intestinal Tract, Via Natural or Artificial Opening Endoscopic (ICD-10-PCS; principal; 2021-12-13)
DX: R13.12 Dysphagia, oropharyngeal phase (principal); G70.00 Myasthenia gravis without (acute) exacerbation; E78.5 Hyperlipidemia, unspecified; I10 Essential (primary) hypertension; F17.210 Nicotine dependence, cigarettes, uncomplicated; J44.9 Chronic obstructive pulmonary disease, unspecified; Z79.899 Other long term (current) drug therapy; Z88.0 Allergy status to penicillin; Z98.1 Arthrodesis status
CPT/HCPCS: J2704

== ENCOUNTER 2022-08-23 12:23 | Outpatient (CLI) | payer BC, MEDICARE | END 2022-08-23 12:24 | disposition home or self-care (01) | LOC: RAD 12:23 | PROVIDERS: ATTEND Family Medicine | DX: R13.10 Dysphagia, unspecified (principal); G70.01 Myasthenia gravis with (acute) exacerbation | CPT/HCPCS: 74230 ==

== ENCOUNTER 2023-07-20 07:47 | Outpatient (CLI) | payer BC, MEDICARE | END 2023-07-20 07:48 | disposition home or self-care (01) | LOC: BICCT 07:47 | PROVIDERS: ATTEND Psychiatry & Neurology Neurology | DX: R93.89 Abnormal findings on diagnostic imaging of other specified body structures (principal); I25.10 Atherosclerotic heart disease of native coronary artery without angina pectoris; R91.8 Other nonspecific abnormal finding of lung field; J84.10 Pulmonary fibrosis, unspecified; J43.2 Centrilobular emphysema | CPT/HCPCS: 71260 ==

== ENCOUNTER 2024-12-31 22:16 | Observation (INO) | payer MEDICARE ==
[~2024-12-31 22:16] MED LIST changes: -ISOVUE-370 76%-LOCM 1 ML ONE; +Iopamidol 370 76% 100 ML VIAL ONE
[2025-01-01 00:11] LABS: Bacteria/HPF None Seen HPF (None Seen); CAUTI Indications for Culture Alt mental st,lethar; Glucose, Urine (Dipstick) Normal (Negative); Leukocyte Negative Leu/uL (Negative); Protein, Urine (Dipstick) Negative (Neg-Trace); RBC/HPF None Seen HPF (0-3); Specific Gravity, Urine 1.003 (1.002-1.036); WBC/HPF None Seen HPF (0-3)
[2025-01-01 00:19] LABS: Cocaine Metabolite Screen Negative (Negative); THC/Cannabinoid Screen Negative (Negative); Tricyclic Screen Negative (Negative)
[2025-01-01 00:25] LABS: Urine Culture Reflex No No
[2025-01-01 00:29] LABS: #Basophils 0.03 10x3/uL (0.0-0.2); #Eosinophils Less than 0.03 10x3/uL (0.0-0.7); #Monocytes 0.46 10x3/uL (0.11-0.59); #Neutrophils 11.60 10x3/uL (1.40-6.50); %Basophils 0.2 % (0.0-1.0); %Eosinophils 0.1 % (0.0-10.0); %Lymphocytes 10.3 % (21.0-51.0); %Monocytes 3.4 % (0.0-10.0); %Neutrophils 85.6 % (42.0-75.0); Hematocrit 34.5 % (42.0-52.0); Hemoglobin 11.6 g/dL (14.0-18.0); Mean Corpuscular Hemoglobin 31.4 pg (27.0-31.0); Mean Corpuscular Volume 93.2 fL (78.0-98.0); Platelet Count 261 10x3/uL (130-400); Red Blood Cell (RBC) Count 3.70 mill/uL (4.70-6.10); White Blood Cell (WBC) Count 13.56 10x3/uL (4.8-10.8)
[2025-01-01 00:50] LABS: ALT (SGPT) 36 U/L (Less than 45); AST (SGOT) 28 U/L (11-34); Acetaminophen Less than 10 mcg/mL (Less than 10); Albumin 3.1 g/dL (3.1-4.5); Alkaline Phosphatase 63 U/L (40-110); Anion Gap 14 mmol/L (10-20); BUN (Urea Nitrogen) 9 mg/dL (8.4-25.7); Bilirubin, Total 0.5 mg/dL (0.3-1.2); CK (CPK) 27 U/L (30-200); Calc. Creatinine Clearance 0 mL/min (70-130); Calcium 9.1 mg/dL (7.8-10.44); Carbon Dioxide 23 mmol/L (23-31); Chloride 96 mmol/L (98-107); Globulin 2.9 g/dL (2.4-3.5); Glucose 98 mg/dL (80-115); Lipase 14 U/L (8-78); Magnesium 2.3 mg/dL (1.6-2.6); Potassium 4.9 mmol/L (3.5-5.1); Salicylate Less than 8.0 mg/dL (Less than 8.0); Sodium 128 mmol/L (136-145)
[2025-01-01] MEDS ORDERED: Melatonin 3 MG TAB PO PRN (03:01)
[2025-01-01] MEDS ORDERED: Ondansetron PF 4 MG/2 ML Vial IVP PRN (03:01)
[2025-01-01] MEDS ORDERED: Ketorolac Tromethamine 30 MG (1 mL) VIAL ONE (03:04)
[2025-01-01 04:38] VITALS: BMI 18.3
[2025-01-01 04:41] LABS: #Basophils Less than 0.03 10x3/uL (0.0-0.2); #Eosinophils Less than 0.03 10x3/uL (0.0-0.7); #Monocytes 0.18 10x3/uL (0.11-0.59); #Neutrophils 11.11 10x3/uL (1.40-6.50); %Basophils 0.1 % (0.0-1.0); %Eosinophils 0.0 % (0.0-10.0); %Lymphocytes 9.3 % (21.0-51.0); %Monocytes 1.4 % (0.0-10.0); %Neutrophils 88.5 % (42.0-75.0); Hematocrit 37.6 % (42.0-52.0); Hemoglobin 12.6 g/dL (14.0-18.0); Mean Corpuscular Hemoglobin 31.7 pg (27.0-31.0); Mean Corpuscular Volume 94.7 fL (78.0-98.0); Platelet Count 278 10x3/uL (130-400); Red Blood Cell (RBC) Count 3.97 mill/uL (4.70-6.10); White Blood Cell (WBC) Count 12.56 10x3/uL (4.8-10.8)
[2025-01-01 04:59] LABS: Anion Gap 13 mmol/L (10-20); BUN (Urea Nitrogen) 7 mg/dL (8.4-25.7); Calc. Creatinine Clearance 56 mL/min (70-130); Calcium 8.7 mg/dL (7.8-10.44); Carbon Dioxide 23 mmol/L (23-31); Chloride 101 mmol/L (98-107); Glucose 118 mg/dL (80-115); Iron 150 ug/dL (65-175); Iron Binding Capacity, Total 214 mcg/dL (261-462); Potassium 5.3 mmol/L (3.5-5.1); Sodium 132 mmol/L (136-145)
[2025-01-01 05:00] LABS: Iron 150 ug/dL (65-175); Iron Binding Capacity, Total 213 mcg/dL (261-462)
[2025-01-01 05:28] LABS: Ferritin 295.49 ng/mL (22-322); Vitamin B12 616.0 pg/mL (211-911)
[2025-01-01] MEDS: Mometasone 200 MCG/Formoterol 5 MCG 120 PUFF INHALER INH SCH (07:54)
[2025-01-01] MEDS: predniSONE 20 MG TAB PO SCH (08:58)
[2025-01-01] MEDS: Lisinopril 5 MG TAB PO SCH (08:58)
[2025-01-01] MEDS: Famotidine 20 MG TAB PO SCH (08:58)
[2025-01-01] MEDS: Enoxaparin 40 MG (0.4 mL) SYRINGE SC SCH (08:58)
[2025-01-01] MEDS: PNEUMOC 20-VAL CONJ-DIP CRM/PF 0.5 ML SYRINGE IM ONE (09:06)
[2025-01-01] MEDS: Pyridostigmine Bromide IR 60 MG TAB PO SCH (09:07)
[2025-01-01] MEDS ORDERED: Famotidine 20 MG TAB PO PRN (09:30)
[2025-01-01] MEDS: Acetaminophen 325 MG TAB PO PRN (09:41)
[2025-01-01] MEDS: Carvedilol 6.25 MG TAB PO SCH (10:02)
[2025-01-01 16:03] VITALS: TEMP 97.9
[2025-01-01 16:15] VITALS: BP 162/93
[2025-01-01] MEDS ORDERED: Mometasone 100 MCG/Formoterol 5 MCG 120 PUFF INHALER INH SCH ×2 (18:30)
[2025-01-01] MEDS ORDERED: Mirtazapine 15 MG TAB PO SCH (21:00)
[2025-01-01] MEDS ORDERED: Carvedilol 6.25 MG TAB PO SCH (21:00)
[2025-01-02] MEDS ORDERED: Enoxaparin 30 MG (0.3 mL) SYRINGE SC SCH (09:00)
[2025-01-02] MEDS ORDERED: Finasteride 5 MG TAB PO SCH (09:00)
== END 2025-01-01 18:07 | disposition home or self-care (01) ==
LOC: ERS 22:16 → 2NO 01-01 02:56
PROVIDERS: ADMIT Internal Medicine; ATTEND Internal Medicine
PROC: B24BZZZ Ultrasonography of Heart with Aorta (ICD-10-PCS; principal; 2025-01-01)
DX: R55 Syncope and collapse (principal); R07.81 Pleurodynia; D64.9 Anemia, unspecified; D72.829 Elevated white blood cell count, unspecified; E87.1 Hypo-osmolality and hyponatremia; I10 Essential (primary) hypertension; J44.9 Chronic obstructive pulmonary disease, unspecified; F17.210 Nicotine dependence, cigarettes, uncomplicated; Z88.0 Allergy status to penicillin; E78.5 Hyperlipidemia, unspecified; Z86.73 Personal history of transient ischemic attack (TIA), and cerebral infarction without residual deficits; Z79.899 Other long term (current) drug therapy
CPT/HCPCS: 70450; 71275; 72125; 73562 ×2; 73630; 74177; 80048; 80053; 80306; 80307 ×2; 81001; 82550; 82607; 82728; 83540; 83550; 83690; 83735; 83880; 84484 ×2; 85025 ×2; 87428; 93005; 93306; 94640; J1650; J1885; Q9967; 36415; J7512; J7620